=== PATIENT | female | born 1965 | race Caucasian/White ===

== ENCOUNTER → 2020-04-22 | Outpatient (CLI) | payer BC ==
--- NOTE | 2020-04-22 14:43 | XR ---
Right hip HISTORY: M 54.5, M 25.551, back pain radiating to right hip 2 views of the right hip Bone mineralization, joint spaces and alignment are maintained. Probable phleboliths present within t he pelvis. IMPRESSION: Normal right hip.
--- NOTE | 2020-04-22 14:50 | XR ---
Lumbosacral spine HISTORY: Low back pain, M 54.5, M 25.51 5 views of lumbosacral spine Lumbar vertebral bodies show preserved height, alignment, bone mineralization is mildly reduced. No e vident spondylolysis. Loss of disc height present L5-S1, L4-5, there is multilevel spondylosis. Suspe ct T12 is nonrib-bearing. Sclerosis present in the posterior elements of the lower lumbar spine. Ques tionable ectasia within the abdominal aorta, as described calcifications present IMPRESSION: Degenerative disc disease and facet arthropathy.
== END | disposition home or self-care (01) ==
LOC: RADXRMAIN 13:08
PROVIDERS: ATTEND Family Medicine
DX: M51.36 Other intervertebral disc degeneration, lumbar region (principal); M47.816 Spondylosis without myelopathy or radiculopathy, lumbar region; M25.551 Pain in right hip
CPT/HCPCS: 72110; 73502

== ENCOUNTER → 2020-04-29 | Outpatient (CLI) | payer BC ==
--- NOTE | 2020-04-30 07:48 | US ---
EXAMINATION TYPE: US abdomen complete DATE OF EXAM: 04/29/2020 COMPARISON: NONE CLINICAL HISTORY: R68.89 Abnormal clinical finding. Follow up to xray. EXAM MEASUREMENTS: Liver Length: 16.3 cm Gallbladder Wall: .2 cm CBD: .3 cm Spleen: 10.5 cm Right Kidney: 10.1 x 4.1 x 4.4 cm Left Kidney: 11 x 4.4 x 4.4 cm Pancreas: wnl Liver: wnl. Some early fatty infiltration may be present. Gallbladder: wnl Evidence for sonographic Hernandez's sign: No CBD: wnl Spleen: wnl Right Kidney: wnl Left Kidney: wnl Upper IVC: wnl Abd Aorta: wnl IMPRESSION: 1. Normal right upper quadrant ultrasound
== END | disposition home or self-care (01) ==
LOC: RADUSWWP 14:44
PROVIDERS: ATTEND Family Medicine
DX: R68.89 Other general symptoms and signs (principal); Z91.011 Allergy to milk products; Z91.012 Allergy to eggs
CPT/HCPCS: 76700

== ENCOUNTER → 2021-01-06 | Outpatient (CLI) | payer BC ==
--- NOTE | 2021-01-06 12:59 | XR ---
KUB HISTORY: Abdominal pain, hematuria, right flank pain Frontal KUB submitted on [address] scan 10/12/2015, ultrasound 04/29/2020 The lung bases are clear. There is overlying artifact. No evident bowel obstruction or pneumoperitone um. No pathologic calcification is evident. Scattered calcifications within the pelvis are felt likel y to represent phleboliths. IMPRESSION: Multiple pelvic calcifications, at least some of which are outside medical sales representative of phleboliths
== END ==
LOC: RADXRMAIN 12:38
PROVIDERS: ATTEND Family Medicine
DX: R31.9 Hematuria, unspecified (principal); R10.9 Unspecified abdominal pain
CPT/HCPCS: 74018

== ENCOUNTER → 2021-03-03 | Outpatient (CLI) | payer BC ==
--- NOTE | 2021-03-03 15:52 | XR ---
EXAMINATION TYPE: XR Hip Complete RT DATE OF EXAM: 03/03/2021 COMPARISON: NONE HISTORY: Pain TECHNIQUE: 2 views submitted FINDINGS: There is no evidence of erosive change or acute fracture. Vascular calcifications in the pelvis. Mild arthropathy of the SI joints. Mild prominence of lateral margin of the acetabulum. IMPRESSION: 1. Mild SI joint arthropathy. 2. Mild prominence of the lateral margin the acetabulum can be associated with femoral acetabular imp ingement. Correlate clinically..
--- NOTE | 2021-03-03 15:52 | XR ---
EXAMINATION TYPE: XR femur RT DATE OF EXAM: 03/03/2021 CLINICAL HISTORY: Pain TECHNIQUE: Two views of the right femur are obtained. COMPARISON: None FINDINGS: There is no acute fracture or dislocation seen in the right femur. The right hip appear w ithin normal limits. The overlying soft tissue appears unremarkable. Calcifications the pelvis likel y vascular. Narrowing of the knee joint incidentally noted. IMPRESSION: There is no acute fracture or dislocation in the right femur.
== END | disposition home or self-care (01) ==
LOC: RADXRMAIN 14:40
PROVIDERS: ATTEND Nurse Practitioner Women's Health
DX: M16.11 Unilateral primary osteoarthritis, right hip (principal); M79.651 Pain in right thigh
CPT/HCPCS: 73502

== ENCOUNTER → 2022-01-11 | Outpatient (CLI) | payer BC ==
--- NOTE | 2022-01-11 15:11 | XR ---
Cervical spine HISTORY: Pain 5 views of the cervical spine Cervical vertebral bodies show preserved height, alignment, and bone mineralization. Disc spaces and prevertebral soft tissues are normal. No significant foraminal encroachment on oblique views. Rudimen tary cervical ribs are noted incidentally. IMPRESSION: No abnormality evident to account for patient's symptoms. Incidental cervical ribs.
--- NOTE | 2022-01-11 15:12 | XR ---
Left shoulder HISTORY: M25.512 M54.2 3 views of the left shoulder Bone mineralization, joint spaces and alignment are maintained. Left lung apex as visualized is luz l. There is a distal acromial spur. IMPRESSION: Correlate for impingement. Shoulder MRI may be of benefit.
== END | disposition home or self-care (01) ==
LOC: RADXRMAIN 14:17
PROVIDERS: ATTEND Nurse Practitioner Family
DX: M25.512 Pain in left shoulder (principal); M54.2 Cervicalgia
CPT/HCPCS: 72050

== ENCOUNTER 2022-01-21 13:53 | Observation (INO) | payer BC ==
[2022-01-21 15:14] LABS: Basophils % (A) 1 %; Eosinophils % (A) 0 %; HCT 40.4 % (34.0-46.0); HGB 13.5 gm/dL (11.4-16.0); Lymphocytes # (A) 1.3 k/uL (1.0-4.8); Lymphocytes % (A) 17 %; MCH 29.2 pg (25.0-35.0); MCHC 33.4 g/dL (31.0-37.0); MCV 87.2 fL (80.0-100.0); Mean Platelet Volume 8.5; Monocytes # (A) 0.3 k/uL (0-1.0); Monocytes % (A) 4 %; Neutrophils % (A) 78 %; Platelet Count 261 k/uL (150-450); RBC 4.63 m/uL (3.80-5.40); RDW 12.6 % (11.5-15.5); WBC 7.7 k/uL (3.8-10.6)
--- NOTE | 2022-01-21 15:14 | XR ---
EXAMINATION TYPE: XR chest 2V DATE OF EXAM: 01/21/2022 COMPARISON: NONE HISTORY: Chest pain. TECHNIQUE: Frontal and lateral views of the chest are obtained. FINDINGS: Overlying EKG leads. There is no focal air space opacity, pleural effusion, or pneumothora x seen. The cardiac silhouette size is within normal limits. The osseous structures are intact. IMPRESSION: No acute process.
[2022-01-21 15:32] LABS: INR 0.9 (<1.2); Partial Thromboplastin Time 21.9 sec (22.0-30.0); Prothrombin Time 10.1 sec (9.0-12.0)
--- NOTE | 2022-01-21 15:41 | ED ---
General Adult HPI - General Chief complaint: Chest Pain Stated complaint: recheck Time Seen by Provider: 01/21/22 14:37 Source: patient, RN notes reviewed, old records reviewed Mode of arrival: ambulatory Limitations: no limitations - History of Present Illness Initial comments: 56 -year-old female presents for evaluation of chest pain which began yesterday. Patient states she was out for a walk. She developed a substernal chest pain which was relieved by rest. She has no prior history of CAD. She states she's had some intermittent palpitations and chest discomfort and is currently following with her primary care physician and has a stress echo planned for the of this month. She denies cough or fever. Denies dyspnea. Denies lower extremity pain or swelling. Denies vomiting. She states she has had some symptoms in her left arm but this is been ongoing for approximately one month and she believes associated with neck pain and is scheduled for MRI as an outpatient. - Related Data Home Medications Medication Instructions Recorded Confirmed Cyanocobalamin (Vitamin B-12) 1,000 mcg PO DAILY 01/21/22 01/21/22 [Vitamin B-12] Ibuprofen [Motrin Ib] 800 mg PO Q8H 01/21/22 01/21/22 Loratadine [Alavert] 10 mg PO DAILY PRN 01/21/22 01/21/22 Rosuvastatin Calcium [Crestor] 5 mg PO Q48H 01/21/22 01/21/22 methocarbamoL [Robaxin] 500 mg PO HS 01/21/22 01/21/22 predniSONE [Deltasone] 20 mg PO DAILY 01/21/22 01/21/22 Allergies Allergy/AdvReac Type Severity Reaction Status Date / Time banana Allergy Dyspnea/Wyatt Verified 01/21/22 16:48 h/Hives egg Allergy Dyspnea Verified 01/21/22 16:48 garlic Allergy Unknown Verified 01/21/22 16:48 milk Allergy Unknown Verified 01/21/22 16:48 corina Allergy Unknown Uncoded 01/21/22 16:48 Review of Systems ROS Statement: Those systems with pertinent positive or pertinent negative responses have been documented in the HPI. ROS Other: All systems not noted in ROS Statement are negative. Past Medical History Past Medical History: GERD/Reflux, Skin Disorder Additional Past Medical History / Comment(s): ECZEMA, HAVING STOMACH PAIN AFTER EATING. History of Any Multi-Drug Resistant Organisms: None Reported Past Surgical History: Section Additional Past Surgical History / Comment(s): laser surgery for cervial dysplasia, pilonidal cyst, COLONOSCOPY Past Anesthesia/Blood Transfusion Reactions: Motion Sickness Past Psychological History: No Psychological Hx Reported Smoking Status: Never smoker Past Alcohol Use History: None Reported Past Drug Use History: None Reported - Past Family History Father Additional Family Medical History / Comment(s): ACOUSTIC NEUROMA General Exam Limitations: no limitations General appearance: alert, in no apparent distress Head exam: Present: atraumatic, normocephalic Eye exam: Present: normal appearance, PERRL ENT exam: Present: normal exam Neck exam: Present: normal inspection. Absent: tenderness, meningismus Respiratory exam: Present: normal lung sounds bilaterally. Absent: respiratory distress, wheezes Cardiovascular Exam: Present: regular rate, normal rhythm GI/Abdominal exam: Present: soft. Absent: distended, tenderness, guarding Extremities exam: Present: normal inspection, normal capillary refill. Absent: pedal edema Back exam: Present: normal inspection Neurological exam: Present: alert, oriented X3, CN II-XII intact. Absent: motor sensory deficit Psychiatric exam: Present: normal affect, normal mood Skin exam: Present: warm, dry, intact. Absent: cyanosis, diaphoretic Course Vital Signs 01/21/22 14:01 Temperature 97.2 F L Pulse Rate 82 Respiratory 18 Rate Blood Pressure 138/84 O2 Sat by Pulse 98 Oximetry EKG Findings - EKG Comments: EKG Findings:: EKG: Sinus rhythm with minimal ST segment depression in the lateral precordial leads and leads 3 and aVF. There is no ST segment elevation rate of 71, TN interval 142, QRS duration 91, QTC 401 Medical Decision Making - Medical Decision Making 56-year-old female presenting for evaluation of chest pain relieved by rest. No previous history of CAD. EKG shows sinus rhythm without ST segment elevation. There is subtle ST segment depression. Chest x-ray is clear. She has a normal CBC, normal CMP. She does have a stress test scheduled. Given the worsening features of her symptoms she will be admitted for serial cardiac enzymes, telemetry, cardiology consultation. Case discussed with Dr. Miles who will admit. - Lab Data Result diagrams: 01/21/22 14:00 01/21/22 16:19 Lab Results 01/21/22 01/21/22 01/21/22 Range/Units 14:00 14:00 14:00 WBC 7.7 (3.8-10.6) k/uL RBC 4.63 (3.80-5.40) m/uL Hgb 13.5 (11.4-16.0) gm/dL Hct 40.4 (34.0-46.0) % MCV 87.2 (80.0-100.0) fL MCH 29.2 (25.0-35.0) pg MCHC 33.4 (31.0-37.0) g/dL RDW 12.6 (11.5-15.5) % Plt Count 261 (150-450) k/uL MPV 8.5 Neutrophils % 78 % Lymphocytes % 17 % Monocytes % 4 % Eosinophils % 0 % Basophils % 1 % Neutrophils # 6.0 (1.3-7.7) k/uL Lymphocytes # 1.3 (1.0-4.8) k/uL Monocytes # 0.3 (0-1.0) k/uL Eosinophils # 0.0 (0-0.7) k/uL Basophils # 0.0 (0-0.2) k/uL PT 10.1 (9.0-12.0) sec INR 0.9 (<1.2) APTT 21.9 L (22.0-30.0) sec Sodium (137-145) mmol/L Potassium (3.5-5.1) mmol/L Chloride (98-107) mmol/L Carbon Dioxide (22-30) mmol/L Anion Gap mmol/L BUN (7-17) mg/dL Creatinine (0.52-1.04) mg/dL Est GFR (CKD-EPI)AfAm (>60 ml/min/1.73 sqM) Est GFR (CKD-EPI)NonAf (>60 ml/min/1.73 sqM) Glucose (74-99) mg/dL Calcium (8.4-10.2) mg/dL Magnesium (1.6-2.3) mg/dL Total Bilirubin (0.2-1.3) mg/dL AST (14-36) U/L ALT (4-34) U/L Alkaline Phosphatase (38-126) U/L Troponin I (0.000-0.034) ng/mL NT-Pro-B Natriuret Pep 111 pg/mL Total Protein (6.3-8.2) g/dL Albumin (3.5-5.0) g/dL Lipase (23-300) U/L 01/21/22 01/21/22 Range/Units 16:19 16:19 WBC (3.8-10.6) k/uL RBC (3.80-5.40) m/uL Hgb (11.4-16.0) gm/dL Hct (34.0-46.0) % MCV (80.0-100.0) fL MCH (25.0-35.0) pg MCHC (31.0-37.0) g/dL RDW (11.5-15.5) % Plt Count (150-450) k/uL MPV Neutrophils % % Lymphocytes % % Monocytes % % Eosinophils % % Basophils % % Neutrophils # (1.3-7.7) k/uL Lymphocytes # (1.0-4.8) k/uL Monocytes # (0-1.0) k/uL Eosinophils # (0-0.7) k/uL Basophils # (0-0.2) k/uL PT (9.0-12.0) sec INR (<1.2) APTT (22.0-30.0) sec Sodium 141 (137-145) mmol/L Potassium 4.2 (3.5-5.1) mmol/L Chloride 107 (98-107) mmol/L Carbon Dioxide 27 (22-30) mmol/L Anion Gap 7 mmol/L BUN 12 (7-17) mg/dL Creatinine 0.57 (0.52-1.04) mg/dL Est GFR (CKD-EPI)AfAm >90 (>60 ml/min/1.73 sqM) Est GFR (CKD-EPI)NonAf >90 (>60 ml/min/1.73 sqM) Glucose 95 (74-99) mg/dL Calcium 9.3 (8.4-10.2) mg/dL Magnesium 2.1 (1.6-2.3) mg/dL Total Bilirubin 0.8 (0.2-1.3) mg/dL AST 20 (14-36) U/L ALT 24 (4-34) U/L Alkaline Phosphatase 79 (38-126) U/L Troponin I <0.012 (0.000-0.034) ng/mL NT-Pro-B Natriuret Pep pg/mL Total Protein 7.0 (6.3-8.2) g/dL Albumin 4.4 (3.5-5.0) g/dL Lipase 48 (23-300) U/L Disposition Clinical Impression: Chest pain Disposition: HOME SELF-CARE Condition: Stable Is patient prescribed a controlled substance at d/c from ED?: No Referrals: Nonstaff,Physician [REFERRING] - 1-2 days Decision to Admit Reason: Admit from EC Decision Date: 01/21/22 Decision Time: 17:56
[2022-01-21 16:37] LABS: ALT 24 U/L (4-34); AST 20 U/L (14-36); African American GFR (CKD) >90 (>60 ml/min/1.73 sqM); Albumin 4.4 g/dL (3.5-5.0); Alkaline Phosphatase 79 U/L (38-126); Anion Gap 7 mmol/L; Blood Urea Nitrogen 12 mg/dL (7-17); Calcium 9.3 mg/dL (8.4-10.2); Carbon Dioxide 27 mmol/L (22-30); Chloride 107 mmol/L (98-107); Glucose 95 mg/dL (74-99); Lipase 48 U/L (23-300); Magnesium 2.1 mg/dL (1.6-2.3); Non-African American GFR(CKD) >90 (>60 ml/min/1.73 sqM); Potassium 4.2 mmol/L (3.5-5.1); Sodium 141 mmol/L (137-145); Total Bilirubin 0.8 mg/dL (0.2-1.3)
[2022-01-21] MEDS ORDERED: ONDANSETRON 4 MG/2 ML VIAL IVP PRN (17:51)
[2022-01-21] MEDS ORDERED: NALOXONE 0.4 MG/ML 1 ML VIAL IV PRN (17:51)
[2022-01-21] MEDS ORDERED: ACETAMINOPHEN TAB 325 MG TAB PO PRN (17:51)
[2022-01-22 08:07] VITALS: TEMP 97.7
--- NOTE | 2022-01-22 11:29 | P.CRDCN ---
History of Present Illness History of present illness: HISTORY OF PRESENTING ILLNESS Patient is a pleasant 56-year-old female with history of end-stage renal disease approximally 6 years who presents secondary to multiple complaints including fa tigue, chest pain, shortness breath, abdominal pain, chills since her COVID-19 vaccination this Monday. He states she felt fairly fatigued and slept for approximately day and a half and then was still having some symptoms of chest pain which went down the center of her chest and radiated down her sides, shortness breath and feeling chilled. Therefore she came to emergency department and was found to have normal troponins 3, normal proBNP, EKG normal sinus rhythm with minimal ST depressions. She states since yesterday she is feeling much better and denies any further chest pain. Of CAD, congestive heart failure, heart catheterization. REVIEW OF SYSTEMS At the time of my exam: CONSTITUTIONAL: Denies fever or chills. CARDIOVASCULAR: +Chest pain, +shortness of breath, no orthopnea, PND or palpitations. RESPIRATORY: Denies cough. GASTROINTESTINAL: +abdominal pain, no diarrhea, constipation, nausea or vomiting. MUSCULOSKELETAL: Denies myalgias. NEUROLOGIC: Denies numbness, tingling or weakness. ENDOCRINE: Denies fatigue, weight change, polydipsia or polyurina. GENITOURINARY: Denies burning, hematuria or urgency with micturation. HEMATOLOGIC: Denies history of anemia or bleeding. PHYSICAL EXAMINATION Vital signs reviewed. CONSTITUTIONAL: No apparent distress. HEENT: Head is normocephalic. Pupils are equal, round. Sclerae anicteric. Mucous membranes of the mouth are moist. No JVD. No carotid bruit. CHEST EXAMINATION: Lungs are clear to auscultation. No chest wall tenderness is noted on palpation or with deep breathing. HEART EXAMINATION: Regular rate and rhythm. S1, S2 heard. No murmurs, gallops or rub. ABDOMEN: Soft, nontender. Positive bowel sounds. EXTREMITIES: 2+ peripheral pulses, no lower extremity edema and no calf tenderness. NEUROLOGIC EXAMINATION: Patient is awake, alert and oriented x3. ASSESSMENT 1. Atypical chest pain as well as multiple other complaints most likely related to recent COVID-19 vaccination on Monday 2. COVID-19 vaccination Monday 3. End-stage renal disease PLAN Patient was having a multitude of symptoms immediately after her vaccine however no evidence of any myocarditis. Symptoms are atypical and have improved. Tropo nins normal 3 and no further workup required as an inpatient currently. Patient may be discharged home with outpatient follow-up in 1 week. Past Medical History Past Medical History: GERD/Reflux, Hyperlipidemia, Skin Disorder Additional Past Medical History / Comment(s): ECZEMA History of Any Multi-Drug Resistant Organisms: None Reported Past Surgical History: Section Additional Past Surgical History / Comment(s): laser surgery for cervial dys plasia, pilonidal cyst, COLONOSCOPY Past Anesthesia/Blood Transfusion Reactions: Motion Sickness Additional Past Anesthesia/Blood Transfusion Reaction / Comment(s): Pt states she has to use an older anesthesia d/t her milk allergy. Past Psychological History: No Psychological Hx Reported Smoking Status: Never smoker Past Alcohol Use History: None Reported Past Drug Use History: None Reported - Past Family History Mother Family Medical History: AFIB, Diabetes Mellitus, Hyperlipidemia Father Additional Family Medical History / Comment(s): ACOUSTIC NEUROMA Medications and Allergies Home Medications Medication Instructions Recorded Confirmed Type Cyanocobalamin (Vitamin B-12) 1,000 mcg PO DAILY 01/21/22 01/21/22 History [Vitamin B-12] Ibuprofen [Motrin Ib] 800 mg PO Q8H 01/21/22 01/21/22 History Loratadine [Alavert] 10 mg PO DAILY PRN 01/21/22 01/21/22 History Rosuvastatin Calcium [Crestor] 5 mg PO Q48H 01/21/22 01/21/22 History methocarbamoL [Robaxin] 500 mg PO HS 01/21/22 01/21/22 History predniSONE [Deltasone] 20 mg PO DAILY 01/21/22 01/21/22 History Allergies Allergy/AdvReac Type Severity Reaction Status Date / Time banana Allergy Dyspnea/Wyatt Verified 01/21/22 16:48 h/Hives egg Allergy Dyspnea Verified 01/21/22 16:48 garlic Allergy Unknown Verified 01/21/22 16:48 milk Allergy Unknown Verified 01/21/22 16:48 corina Allergy Unknown Uncoded 01/21/22 16:48 Physical Exam Vitals: Vital Signs Temp Pulse Pulse Resp BP BP Pulse Ox 01/22/22 07:30 97.7 F 59 L 16 115/69 98 01/22/22 02:33 97.8 F 75 18 108/65 98 03/19/22 01:41 60 01/21/22 20:00 18 01/21/22 19:51 98.2 F 60 18 127/73 97 01/21/22 18:14 68 18 115/79 98 01/21/22 14:01 97.2 F L 82 18 138/84 98 Intake and Output 01/21/22 01/22/22 01/22/22 22:59 06:59 14:59 Intake Total 0 Balance 0 Intake: Oral 0 Other: Voiding Method Toilet # Voids 1 2 Weight 65.317 kg Results 01/21/22 14:00 01/21/22 16:19 Cardiac Enzymes 01/21/22 01/21/22 01/21/22 Range/Units 16:19 16:19 19:44 AST 20 (14-36) U/L Troponin I <0.012 <0.012 (0.000-0.034) ng/mL 01/22/22 Range/Units 00:37 AST (14-36) U/L Troponin I <0.012 (0.000-0.034) ng/mL Coagulation 01/21/22 Range/Units 14:00 PT 10.1 (9.0-12.0) sec APTT 21.9 L (22.0-30.0) sec CBC 01/21/22 Range/Units 14:00 WBC 7.7 (3.8-10.6) k/uL RBC 4.63 (3.80-5.40) m/uL Hgb 13.5 (11.4-16.0) gm/dL Hct 40.4 (34.0-46.0) % Plt Count 261 (150-450) k/uL Comprehensive Metabolic Panel 01/21/22 Range/Units 16:19 Sodium 141 (137-145) mmol/L Potassium 4.2 (3.5-5.1) mmol/L Chloride 107 (98-107) mmol/L Carbon Dioxide 27 (22-30) mmol/L BUN 12 (7-17) mg/dL Creatinine 0.57 (0.52-1.04) mg/dL Glucose 95 (74-99) mg/dL Calcium 9.3 (8.4-10.2) mg/dL AST 20 (14-36) U/L ALT 24 (4-34) U/L Alkaline Phosphatase 79 (38-126) U/L Total Protein 7.0 (6.3-8.2) g/dL Albumin 4.4 (3.5-5.0) g/dL Current Medications Generic Name Dose Route Start Last Admin Trade Name Freq PRN Reason Stop Dose Admin Acetaminophen 650 mg 01/21/22 17:51 Acetaminophen Tab 325 Mg Tab PO Q6HR PRN Mild Pain or Fever > 100.5 Naloxone HCl 0.2 mg 01/21/22 17:51 Naloxone 0.4 Mg/Ml 1 Ml Vial IV Q2M PRN Opioid Reversal Ondansetron HCl 4 mg 01/21/22 17:51 Ondansetron 4 Mg/2 Ml Vial IVP Q8HR PRN Nausea And Vomiting Intake and Output 01/21/22 01/22/22 01/22/22 22:59 06:59 14:59 Intake Total 0 Balance 0 Intake: Oral 0 Other: Voiding Method Toilet # Voids 1 2 Weight 65.317 kg 01/21/22 14:00 01/21/22 16:19
--- NOTE | 2022-01-22 14:16 | P.HPIM ---
History of Present Illness H&P Date: 01/22/22 Chief Complaint: Chest pain dyspnea Maureen is a 56-year-old female well-known to the practice, admitted with chest pain shortness of breath, this patient lives nearby my home and walks daily 2-3 miles with her . Is employed as a nurse at the [employer], during resting episode developed profound of burning midsternal which seemed to take her breath away patient's initial troponin was negative has a past history of reflux esophagitis maternal history of atrial fibrillation in her mother, Patient was kept for a 24-hour cardiac hold, all 3 troponins are negative, patient denies chest pain, is up walking around the room and in asking for food and water, this patient has not been seen by cardiology yet. However she already has a stress echo scheduled for next week with the tool clerk. Decision was made with the patient to discharge the patient home discussed raising the head of the bed discuss wearing loosefitting clothing discussed all of the recommendations associated with gastroesophageal reflux disease patient was instructed to return to the emergency room if she should develop this chest pain with shortness of breath at any time Review of Systems Constitutional: Reports as per HPI Cardiovascular: Reports chest pain (Suspect reflux esophagitis) Respiratory: Reports as per HPI Gastrointestinal: Reports dyspepsia Genitourinary: Reports as per HPI Menstruation: Reports as per HPI Musculoskeletal: Reports as per HPI Integumentary: Reports as per HPI Neurological: Reports as per HPI Psychiatric: Reports as per HPI Past Medical History Past Medical History: GERD/Reflux, Hyperlipidemia, Skin Disorder Additional Past Medical History / Comment(s): ECZEMA History of Any Multi-Drug Resistant Organisms: None Reported Past Surgical History: Section Additional Past Surgical History / Comment(s): laser surgery for cervial dysplasia, pilonidal cyst, COLONOSCOPY Past Anesthesia/Blood Transfusion Reactions: Motion Sickness Additional Past Anesthesia/Blood Transfusion Reaction / Comment(s): Pt states she has to use an older anesthesia d/t her milk allergy. Past Psychological History: No Psychological Hx Reported Smoking Status: Never smoker Past Alcohol Use History: None Reported Past Drug Use History: None Reported - Past Family History Mother Family Medical History: AFIB, Diabetes Mellitus, Hyperlipidemia Father Additional Family Medical History / Comment(s): ACOUSTIC NEUROMA Medications and Allergies Home Medications Medication Instructions Recorded Confirmed Type Cyanocobalamin (Vitamin B-12) 1,000 mcg PO DAILY 01/21/22 01/21/22 History [Vitamin B-12] Ibuprofen [Motrin Ib] 800 mg PO Q8H 01/21/22 01/21/22 History Loratadine [Alavert] 10 mg PO DAILY PRN 01/21/22 01/21/22 History Rosuvastatin Calcium [Crestor] 5 mg PO Q48H 01/21/22 01/21/22 History methocarbamoL [Robaxin] 500 mg PO HS 01/21/22 01/21/22 History predniSONE [Deltasone] 20 mg PO DAILY 01/21/22 01/21/22 History Allergies Allergy/AdvReac Type Severity Reaction Status Date / Time banana Allergy Dyspnea/Wyatt Verified 01/21/22 16:48 h/Hives egg Allergy Dyspnea Verified 01/21/22 16:48 garlic Allergy Unknown Verified 01/21/22 16:48 milk Allergy Unknown Verified 01/21/22 16:48 corina Allergy Unknown Uncoded 01/21/22 16:48 Physical Exam Osteopathic Statement: *. No significant issues noted on an osteopathic structural exam other than those noted in the History and Physical/Consult. Vitals: Vital Signs Temp Pulse Pulse Resp BP BP Pulse Ox 01/22/22 07:30 97.7 F 59 L 16 115/69 98 01/22/22 02:33 97.8 F 75 18 108/65 98 01/22/22 01:41 60 01/21/22 20:00 18 01/21/22 19:51 98.2 F 60 18 127/73 97 01/21/22 18:14 68 18 115/79 98 Intake and Output 01/21/22 01/22/22 01/22/22 22:59 06:59 14:59 Intake Total 0 Balance 0 Intake: Oral 0 Other: Voiding Method Toilet # Voids 1 2 Weight 65.317 kg General: [Patient awake, alert and oriented times 3. Patient in no acute distr ess.] HEENT: [PERRL. EOMI. No pharyngeal erythema or exudate.] Neck: [No adenopathy.] Cardiac: [Heart regular in rate and rhythm. No S3. No S4. No clicks, rubs. No murmur.] Lungs: [Clear to auscultation bilaterally.] Abdomen: [No mass. No organomegaly. Bowel sounds presnt and normoactive in all 4 quadrants. Mild reproducible epigastric tenderness on palpation Extremes: [No edema no cyanosis no claudication normal pulses] : Normal female genitalia Musculoskeletal: [No joint erythema, edema or tenderness.] Skin: [No rash.] Neurologic: [No lateralizing deficits. CN II - XII grossly intact.] Lymphatic: [No adenopathy.] Results CBC & Chem 7: 01/21/22 14:00 01/21/22 16:19 Labs: Abnormal Lab Results - Last 24 Hours (Table) 01/21/22 Range/Units 14:00 APTT 21.9 L (22.0-30.0) sec Thrombosis Risk Factor Assmnt - Choose All That Apply Any of the Below Risk Factors Present?: Yes Each Factor Represents 1 point: Age 41-60 years, Obesity (BMI >25) Other Risk Factors: No Other congenital or acquired thrombophilia - If yes, enter type in comment: No Thrombosis Risk Factor Assessment Total Risk Factor Score: 2 Thrombosis Risk Factor Assessment Level: Low Risk Assessment and Plan (1) Gastroesophageal reflux disease with esophagitis Current Visit: Yes Status: Acute Code(s): K21.00 - GASTRO-ESOPHAGEAL REFLUX DIS WITH ESOPHAGITIS, WITHOUT BLEED SNOMED Code(s): 402854635 Plan: Patient presented with chest pain EKG shows no evidence of acute changes Troponins no elevation in 3 serial troponins Known history of esophageal reflux has seen Dr. Giovany MASON in the past Has a stress echo scheduled for next week will keep appointment We'll discharged home in stable condition Did offer patient omeprazole for esophageal reflux she declined at this time Time with Patient: Greater than 30
--- NOTE | 2022-01-22 14:18 | P.DS ---
Providers Date of admission: 01/21/22 17:51 Expected date of discharge: 01/22/22 Attending physician: Ramon Miles Consults: 01/21/22 17:52 Consult Physician Routine Consulting Provider: Benja Alcocer Consult Reason/Comments: CP rule out Do you want consulting provider notified?: Yes Primary care physician: Ramon Miles - Discharge Diagnosis(es) (1) Gastroesophageal reflux disease with esophagitis Current Visit: Yes Status: Acute Hospital Course: Admitted for observation serial EKG serial troponins negative for acute changes or for elevated cardiac enzyme Patient Condition at Discharge: Good Plan - Discharge Summary New Discharge Prescriptions: No Action Rosuvastatin Calcium [Crestor] 5 mg PO Q48H Loratadine [Alavert] 10 mg PO DAILY PRN PRN Reason: Allergy Symptoms predniSONE [Deltasone] 20 mg PO DAILY Ibuprofen [Motrin Ib] 800 mg PO Q8H Cyanocobalamin (Vitamin B-12) [Vitamin B-12] 1,000 mcg PO DAILY methocarbamoL [Robaxin] 500 mg PO HS Discharge Medication List Cyanocobalamin (Vitamin B-12) [Vitamin B-12] 1,000 mcg PO DAILY 01/21/22 [History] Ibuprofen [Motrin Ib] 800 mg PO Q8H 01/21/22 [History] Loratadine [Alavert] 10 mg PO DAILY PRN 01/21/22 [History] Rosuvastatin Calcium [Crestor] 5 mg PO Q48H 01/21/22 [History] methocarbamoL [Robaxin] 500 mg PO HS 01/21/22 [History] predniSONE [Deltasone] 20 mg PO DAILY 01/21/22 [History] Follow up Appointment(s)/Referral(s): Nonstaff,Physician [REFERRING] - 1-2 days
[2022-01-22 14:29] VITALS: BP 130/80; PULSE 69; RESP 17
== END 2022-01-22 14:42 | disposition home or self-care (01) ==
LOC: EC 13:53 → 6NMEDSUR 17:51
PROVIDERS: ADMIT Family Medicine; ATTEND Family Medicine
DX: K21.00 Gastro-esophageal reflux disease with esophagitis, without bleeding (principal); E78.5 Hyperlipidemia, unspecified; L30.9 Dermatitis, unspecified; R00.2 Palpitations; E66.9 Obesity, unspecified; Z68.27 Body mass index [BMI] 27.0-27.9, adult; Z79.899 Other long term (current) drug therapy; Z79.1 Long term (current) use of non-steroidal anti-inflammatories (NSAID); Z91.012 Allergy to eggs; Z91.018 Allergy to other foods; Z91.048 Other nonmedicinal substance allergy status; Z91.011 Allergy to milk products; Z82.49 Family history of ischemic heart disease and other diseases of the circulatory system; Z83.3 Family history of diabetes mellitus; Z84.89 Family history of other specified conditions; Z83.438 Family history of other disorder of lipoprotein metabolism and other lipidemia
CPT/HCPCS: 99285; 36415; 93005; 83880; 80053; 83690; 83735; 84484 ×2; 85025; 85610; 85730; 71046; G0378 ×2

== ENCOUNTER → 2022-01-21 | Outpatient (CLI) | payer BC | END | disposition home or self-care (01) | LOC: LABWHC1 13:34 | PROVIDERS: ATTEND Nurse Practitioner Family | DX: Z53.9 Procedure and treatment not carried out, unspecified reason (principal) ==

== ENCOUNTER → 2022-01-31 | Outpatient (CLI) | payer BC ==
--- NOTE | 2022-01-31 10:57 | ECHOS ---
STRESS ECHOCARDIOGRAM DATE OF STUDY: 01/31/2022 INDICATIONS: Chest pain. BASELINE HEART RATE: 75 BASELINE BLOOD PRESSURE: 118/56 MAXIMUM HEART RATE: 75 MAXIMUM BLOOD PRESSURE: 118/56 85% MPHR: 154 100% MPHR: 138 METS: 162 MAXIMUM STAGE REACHED: 3 TOTAL EXERCISE TIME: 9 min. CLINICAL INFORMATION: STRESS DATA: Pre-testing physical examination showed a heart rate of 75, pressure 118/56 mmHg. Baseline EKG showed sinus mechanism. The patient exercised on the treadmill according to Edinson protocol for a total of 9 minutes and achieved 9.3 METS. Max heart rate was 176, which is about 96% of maximum predicted heart rate. Maximum blood pressure was 181/66 mmHg. Clinically the patient did not have any symptoms. The EKG showed about 1 to 1.5 mm horizontal and downsloping ST-segment changes concerning for ischemia. Echocardiogram images from parasternal long-axis view, parasternal short-axis view, apical 4-chamber and apical 2-chamber views were obtained as the baseline images at the peak of the heart rate as well as on recovery. The echocardiogram images showed good augmentation in the left ventricular systolic function without any evidence of wall motion abnormalities concerning for ischemia. CONCLUSION: 1. Excellent exercise tolerance. 2. EKG changes in response to exercise. 3. Normal echocardiogram in response to exercise without any evidence of wall motion abnormalities concerning for ischemia. MMODL / IJN: [id number] /
--- NOTE | 2022-02-01 13:24 | MR ---
EXAMINATION TYPE: MR shoulder LT wo con DATE OF EXAM: 01/31/2022 COMPARISON: Radiograph 01/11/2022 HISTORY: 57-year-old female M25.512, Left shoulder pain, loss of ROM. TECHNIQUE: Multiplanar, multisequence imaging of the left shoulder is performed without contrast. FINDINGS: The long head biceps tendon appears intact and appropriately situated along the bicipital groove. Mil d tenosynovial fluid is present. Some heterogeneous signal of the subscapularis tendon. The tendon remains intact. Moderate degenerative change AC joint with joint space narrowing, mild subchondral marrow edema, and marginal spurring. No significant mass effect onto the underlying myotendinous junction of the supras pinatus. There is trace fluid within the subacromial/subdeltoid bursa noted. Some heterogeneous signal of the spontaneous tendon. There is a tiny intrasubstance tear at the footp rint of the anterior supraspinatus tendon measuring 3 mm long and 5 mm AP. No high-grade partial or f ull-thickness tear is identified of either supraspinatus or infraspinatus tendons. No atrophy of the rotator cuff musculature. The glenohumeral joint is intact. Physiologic joint fluid. No discrete labral tear given on radiograp hic technique and no paralabral cyst. No abnormal thickening of the axillary recess or rotator cuff interval. No Hill-Sachs deformity or os acromiale. No suspicious bone marrow replacement. IMPRESSION: 1. Moderate AC joint OA. Mild subacromial/subdeltoid bursal fluid could be reactive to mild subacromi al impingement. 2. Mild fluid along the bicipital groove could be physiologic or could represent a mild long head bic eps tenosynovitis. 3. Mild diffuse rotator cuff tendinosis. There is a small 5 x 3 mm intrasubstance tear at the footpri nt of the anterior supraspinatus tendon. No high-grade partial or full-thickness rotator cuff tear.
== END | disposition home or self-care (01) ==
LOC: RADNMMAIN 09:06
PROVIDERS: ATTEND Family Medicine
DX: M19.012 Primary osteoarthritis, left shoulder (principal); R00.2 Palpitations; R07.9 Chest pain, unspecified; M77.8 Other enthesopathies, not elsewhere classified; M75.112 Incomplete rotator cuff tear or rupture of left shoulder, not specified as traumatic
CPT/HCPCS: 93351

== ENCOUNTER → 2022-01-31 | Outpatient (CLI) | payer BC | END | disposition home or self-care (01) | LOC: RADMRIMAIN 09:04 | PROVIDERS: ATTEND Nurse Practitioner Family | DX: Z53.9 Procedure and treatment not carried out, unspecified reason (principal) ==

== ENCOUNTER → 2022-11-03 | Outpatient (CLI) | payer BC ==
--- NOTE | 2022-11-03 10:53 | P.SLEEP ---
History of Present Illness DATE: 11/02/2022 CONSULTATION/NEW PATIENT EVALUATION HISTORY OF PRESENT ILLNESS/SLEEP-WAKE EVALUATION: 57-year-old lady had been ev aluated in the sleep center for possible obstructive sleep apnea hypopnea syndrome. SLEEP SCHEDULE: Usually sleep schedule from 11-12 midnight until 6:30-9 AM. FALLING ASLEEP: No problems with falling asleep, although there is a TV in bedroom. DURING SLEEP: Patient has loud snoring and witnessed episodes of stop breathing during the sleep according to her . She wakes up from sleep up to 4 times with up to 3 episodes of nocturia. Positive history of grinding teeth. Patient is using oral appliances to prevent grinding. No history of hypnogogical hallucinations, sleep paralysis, or cataplexy. DURING THE DAY/WAKE STATE: In the morning patient wake up tired, has difficulties to pay attention, positive history of irritability. [place] sleepiness scale is increased to 10. Patient may take 1 nap in the middle of afternoon. PAST MEDICAL HISTORY: Hyperlipidemia, GERD, ALLERGY. PAST SURGICAL HISTORY: Pilonidal needle cyst removed. MEDICATIONS: Rosuvastatin 5 mg once a day, loratidine 10 mg as needed, vitamins D and B12. SOCIAL HISTORY: Negative for smoking, alcohol consumption occasional. FAMILY HISTORY: Hypertension, atrial fibrillation, diabetes, acid reflux. REVIEW OF SYSTEMS: Snoring, multiple awakenings from sleep, sleepiness during the day. No fevers. No double vision. No recent chest pain. No shortness of breath. No abdominal pain. No bleeding episodes. No blood in urine. No seizure episodes. PHYSICAL EXAMINATION: GENERAL: A pleasant patient without any distress. VITAL SIGNS: BP 102/70, HR 76, RR 16, weight 148 pounds, height 5 foot 2-1/4 inches, body mass index 27. HEENT: PERRLA, EOMI. Evaluation of oropharynx showed tongue protrudes midline, low position of soft palate Mallampati 3. NECK: Supple. No JVD. Thyroid is not palpable. 14 inches in circumference. LUNGS: Clear to percussion and to auscultation. Good air exchange. No wheezing or rhonchi. HEART: S1, S2 regular. No murmurs, gallops or rubs. ABDOMEN: Soft and nontender. Bowel sounds are present. No organomegaly appreciated. EXTREMITIES: No clubbing or cyanosis. INSPECTOR GOVERNMENT PROPERTY: Awake, alert, and oriented x3. Cranial nerves 2 to 7 intact. There is no fasciculation or atrophy noted. No focal deficits observed. ASSESSMENT: 1. Loud snoring, witnessed episodes of stop breathing during the sleep, low position of soft palate Mallampati 3, excessive daytime sleepiness [place] Sleepiness Scale is 10. Obstructive sleep apnea hypopnea syndrome. 2. Hyperlipidemia. 3. GERD. 4. ALLERGY. PLAN: 1. Home sleep apnea test to confirm obstructive sleep apnea hypopnea syndrome. 2. Following plan after reading sleep test. 3. Preferable position during sleep on the side. 4. No driving if patient feels any sleepiness. Patient is aware of civil and criminal liability for unsafe driving. 5. Sleep hygiene with regular sleep time for at least 7.5-8 hours. 6. Watching weight. Thank you very much for referring this patient for consultation. Sincerely, Nelson Huerta MD, PhD, FAASM. Diplomat of [place] [employer], Sleep Medicine Board by [place] [employer] [place] [employer] Risk Reduction Counselor of [facility] [place] Past Medical History Past Medical History: GERD/Reflux, Hyperlipidemia, Skin Disorder Additional Past Medical History / Comment(s): ECZEMA History of Any Multi-Drug Resistant Organisms: None Reported Past Surgical History: Section Additional Past Surgical History / Comment(s): laser surgery for cervial dysplasia, pilonidal cyst, COLONOSCOPY Past Anesthesia/Blood Transfusion Reactions: Motion Sickness Additional Past Anesthesia/Blood Transfusion Reaction / Comment(s): Pt states she has to use an older anesthesia d/t her milk allergy. " Smoking Status: Never smoker - Past Family History Mother Family Medical History: AFIB, Diabetes Mellitus, Hyperlipidemia Father Additional Family Medical History / Comment(s): ACOUSTIC NEUROMA Medications and Allergies Home Medications Medication Instructions Recorded Confirmed Type Cyanocobalamin (Vitamin B-12) 1,000 mcg PO DAILY 01/21/22 06/20/22 History [Vitamin B-12] Ibuprofen [Motrin Ib] 400 mg PO Q8H PRN 01/21/22 06/20/22 History Loratadine [Alavert] 10 mg PO DAILY PRN 01/21/22 06/20/22 History Rosuvastatin Calcium [Crestor] 5 mg PO Q48H 01/21/22 06/20/22 History Allergies Allergy/AdvReac Type Severity Reaction Status Date / Time banana Allergy Dyspnea/Wyatt Verified 06/20/22 15:41 h/Hives egg Allergy Dyspnea Verified 06/20/22 15:41 garlic Allergy Unknown Verified 06/20/22 15:41 milk Allergy Unknown Verified 06/20/22 15:41 corina Allergy Unknown Uncoded 06/20/22 15:41 Sleep Note - Sleep Note Sleep Note: Temperature: Pulse Rate: Respiratory Rate: Blood Pressure: SpO2: Height: Weight: BMI: Neck Circumference:
== END ==
LOC: SLEEP 10:11
PROVIDERS: ATTEND Internal Medicine
DX: G47.33 Obstructive sleep apnea (adult) (pediatric) (principal); E78.5 Hyperlipidemia, unspecified; K21.9 Gastro-esophageal reflux disease without esophagitis; Z91.018 Allergy to other foods; Z91.012 Allergy to eggs; Z91.011 Allergy to milk products; Z91.013 Allergy to seafood
CPT/HCPCS: 99211

== ENCOUNTER → 2023-02-15 | Outpatient (CLI) | payer BC ==
--- NOTE | 2023-02-15 15:36 | P.PN ---
Subjective DATE: 02/15/2023 FOLLOW UP VISIT. Patient with obstructive sleep apnea hypopnea syndrome return to sleep center for follow-up visit. Recently patient had sleep study which documented obstructive sleep apnea hypopnea syndrome. Patient was initiated on PAP therapy and today is first visit after treatment was started. Patient was able to use PAP equipment every night for the whole night. The patient does not have significant problems with the mask, PAP pressure and humidification. [place] sleepiness scale is 4, which is normal. I checked information from PAP unit. PAP unit pressure 5-8, average 7.8 cm H2O. Usage is 100 % for more then 4 hours, average 7.25 hours per night. Leak is 2.6 l/m, which is in acceptable range. Apnea Hypopnea Index is 4.0, which is normal. I explained to the patient how to adjust temperature and humidifier and temperature in the tube. MEDICATIONS:1. Rosuvastatin 5 mg once a day 2. Loratidine 10 mg as needed 3. Vitamin D 4. Vitamin B12 During physical exam: GENERAL: A pleasant patient without any distress. VITAL SIGNS: BP 113/66, HR 74, RR 12 , weight 138.2, temperature 98.3, oxygen saturation at room air 99% . HEENT: PERRLA, EOMI.low position of soft palate, Mallapati 3 . NECK: Supple. No JVD. LUNGS: Clear to percussion and to auscultation. Good air exchange. No wheezing or rhonchi. HEART: S1, S2 regular. ABDOMEN: Soft and nontender.[] EXTREMITIES: No clubbing or cyanosis. PETROLEUM INSPECTOR: Awake, alert, and oriented x3. No focal deficit. Impressions: 1. Obstructive sleep apnea-hypopnea syndrome. Patient demonstrated great compliance with treatment, benefiting from treatment. 2. History of GERD. 3. Hyperlipidemia. 4. ALLERGY. Plan: 1. Continue using PAP equipment every night for the whole night. 2. To change air filter at least 1-2 times per month. 3. PAP unit should stay lower then position of the head. 4. Advised patient to remove all remaining water from humidifier canister daily and make it dry after each usage. Refill canister with fresh distilled water before each usage. 5. Sleep hygiene with regular time in bed for at least 8 hours. 6. Precautions related to driving. No driving if feel any sleepiness. 7. I will maintain prescription for PAP supplies including mask, tube, filters. 8. Follow up visit in 6 months or earlier if patient has any problems. 9. Watching weight. Thank you very much for allowing me to participate in the management of your patient. Nelson Huerta MD, PhD, FAASM. Diplomat of [place] [employer], Sleep Medicine Board by [place] [employer] Hearing Health Technician of [facility] [place]
== END ==
LOC: SLEEP 14:52
PROVIDERS: ATTEND Internal Medicine
DX: G47.33 Obstructive sleep apnea (adult) (pediatric) (principal); E78.5 Hyperlipidemia, unspecified; K21.9 Gastro-esophageal reflux disease without esophagitis; Z79.899 Other long term (current) drug therapy; Z99.89 Dependence on other enabling machines and devices; Z91.018 Allergy to other foods; Z91.012 Allergy to eggs; Z91.011 Allergy to milk products; Z91.048 Other nonmedicinal substance allergy status
CPT/HCPCS: 99212

== ENCOUNTER → 2023-05-17 | Outpatient (CLI) | payer BC ==
[2023-05-17 15:27] LABS: Basophils # (A) 0.06 X 10*3/uL (0.00-0.10); Eosinophils # (A) 0.11 X 10*3/uL (0.04-0.35); Eosinophils % (A) 1.8 %; HCT 39.8 % (37.2-46.3); HGB 12.7 d/dL (12.0-15.0); Lymphocytes % (A) 32.8 %; MCH 28.4 pg (27.0-32.0); MCHC 31.9 d/dL (32.0-37.0); Mean Platelet Volume 10.8 FL (9.5-12.2); Monocytes # (A) 0.38 X 10*3/uL (0.20-1.00); Monocytes % (A) 6.2 %; NRBC Per 100 WBC 0 X 10*3/uL (0.00-0.01); Neutrophils # (A) 3.53 X 10*3/uL (1.80-7.70); Platelet Count 258 X 10*3/uL (140-440); RBC 4.47 X 10*6/uL (4.10-5.20); RDW 12.3 % (11.5-14.5); WBC 6.09 X 10*3/uL (4.50-10.00)
[2023-05-17 16:48] LABS: BUN/Creat Ratio 15.17 Ratio (12.00-20.00); Blood Urea Nitrogen 9.1 mg/dL (9.0-27.0); Calcium 9.8 mg/dL (8.7-10.3); Chloride 102 mmol/L (96-109); Glucose 135 mg/dL (70-110); Potassium 4.6 mmol/L (3.5-5.5); Sodium 141 mmol/L (135-145)
== END | disposition home or self-care (01) ==
LOC: LABPAT 09:52
PROVIDERS: ATTEND Orthopaedic Surgery
DX: Z01.812 Encounter for preprocedural laboratory examination (principal); M75.42 Impingement syndrome of left shoulder
CPT/HCPCS: 80048; 85025; 93005

== ENCOUNTER 2023-05-30 05:45 | Day surgery (SDC) | payer BC ==
[2023-05-25 14:22] VITALS: BMI 25.3
--- NOTE | 2023-05-29 08:21 | P.HPOR ---
History of Present Illness H&P Date: 05/29/23 Chief Complaint: Left shoulder pain and stiffness The patient's a 58-year-old female who presents with progressive left shoulder pain for the past year despite conservative measures. She is having pain with overhead use and at night. She's tried therapy in addition to an injection without much relief. Review of Systems As per HPI Past Medical History Past Medical History: GERD/Reflux, Hyperlipidemia, Sleep Apnea/CPAP/BIPAP Additional Past Medical History / Comment(s): sleep apnea with c-pap machine. , pain left shoulder. History of Any Multi-Drug Resistant Organisms: None Reported Past Surgical History: Section Additional Past Surgical History / Comment(s): laser surgery for cervial dysp lasia, pilonidal cyst, COLONOSCOPY Past Anesthesia/Blood Transfusion Reactions: No Reported Reaction, Motion Sickness Additional Past Anesthesia/Blood Transfusion Reaction / Comment(s): Pt states she has to use an older anesthesia d/t her milk allergy. " Past Psychological History: No Psychological Hx Reported Smoking Status: Never smoker Past Alcohol Use History: Occasional Additional Drug Use History / Comment(s): cbd gummies and cbd lotion - Past Family History Mother Family Medical History: AFIB, Diabetes Mellitus, Hyperlipidemia Father Additional Family Medical History / Comment(s): ACOUSTIC NEUROMA Medications and Allergies Home Medications Medication Instructions Recorded Confirmed Type Cholecalciferol [Vitamin D3 (125 125 mcg PO WEEKLY 05/25/23 05/25/23 History Mcg = 5000 Iu)] Cyanocobalamin [Vitamin B-12] 500 mcg PO DAILY 05/25/23 05/25/23 History Allergies Allergy/AdvReac Type Severity Reaction Status Date / Time honey Allergy Unknown Dyspnea, Verified 05/25/23 14:23 tingling around mouth banana Allergy Dyspnea/Wyatt Verified 05/25/23 13:52 h/Hives egg Allergy Dyspnea Verified 05/25/23 13:52 garlic Allergy itching, Verified 05/25/23 13:52 tired milk Allergy itching, Verified 05/25/23 13:52 hives, tired corina Allergy swelling, Uncoded 05/25/23 13:52 hives Physical Examination - Shoulder left Tenderness with palpation: anterior Pain: with abduction, with forward flexion ROM: forward flexion: 120 degrees (Active and passive) ROM: internal rotation: lower lumbar ROM: external rotation: 30 degrees Crepitus with motion: Yes Strength: abduction: 4/5 Strength: external rotation: 4/5 Tests: internal impingement tests: positive, external impingment tests: positive Results The patient is a well-developed well-nourished female, approximately 5 foot 1, 137 pounds. HEENT exam tonsils, neck supple. She is tender about the left shoulder anterior subacromial space. Webster, Neer sign, speed test are positive. Her distal neurovascular appears intact left upper extremity. - Diagnostic results Shoulder MRI: image reviewed (Left shoulder MRI is reviewed and shows evidence of a possible partial thickness tear involving the supraspinatus along with the intra-articular portion along the biceps.) Assessment and Plan Assessment: Left shoulder impingement/rotator cuff tendinitis/possible partial thickness rotator cuff tear Left shoulder adhesive capsulitis Left proximal bicipital tendinosis Plan: I talked to the patient length regarding her condition along with treatment options. At this point she's quite symptomatic having both pain and stiffness despite attempted conservative measures. After thorough discussion shaft proceed with surgery. We will plan to proceed with left shoulder arthroscopy with probable subacromial decompression, possible rotator cuff debridement versus repair, possible biceps tenotomy versus tenodesis in addition to shoulder manipulation.
[2023-05-30] MEDS ORDERED: LIDOCAINE 1% (10MG/ML) FOR IV START INTRADERMA PRN (05:57)
[2023-05-30] MEDS ORDERED: ONDANSETRON 4 MG/2 ML VIAL IVP ONE (05:57)
[2023-05-30] MEDS ORDERED: DEXAMETHASONE SOD PHOSPHATE 4 MG/ML 1 ML VIAL IV ONE (05:57)
[2023-05-30] MEDS ORDERED: MIDAZOLAM 2 MG/2 ML VIAL IV PRN (05:57)
[2023-05-30] MEDS ORDERED: LACTATED RINGERS 1,000 ML IV SCH (05:57)
[2023-05-30] MEDS ORDERED: fentaNYL (PF) 50 MCG/ML 2 ML AMP IVP PRN (07:00)
[2023-05-30] MEDS ORDERED: METOCLOPRAMIDE 5 MG/ML 2 ML VIAL IVP PRN (07:00)
[2023-05-30] MEDS ORDERED: fentaNYL (PF) 50 MCG/ML 2 ML AMP IVP ONE (07:04)
[2023-05-30 07:23] VITALS: RESP 16
[2023-05-30] MEDS ORDERED: LIDOCAINE 2% INJ 20 MG/ML (2 ML VIAL) ONE (07:25)
[2023-05-30] MEDS ORDERED: fentaNYL (PF) 50 MCG/ML 2 ML AMP ONE (07:25)
[2023-05-30] MEDS ORDERED: PHENYLEPHRINE 10 MG/ML VIAL ONE (07:25)
[2023-05-30] MEDS ORDERED: SUCCINYLCHOLINE CHLORIDE 200 MG/10 ML VIAL IV ONE (07:25)
[2023-05-30] MEDS ORDERED: ROPIVACAINE 5 MG/ML 30 ML VIAL ONE (07:25)
[2023-05-30] MEDS ORDERED: ETOMIDATE 2 MG/ML 10 ML VIAL ONE (07:25)
[2023-05-30] MEDS ORDERED: ePHEDrine 50 MG/ML 1 ML VIAL ONE (07:25)
[2023-05-30] MEDS ORDERED: DEXAMETHASONE SOD PHOSPHATE 4 MG/ML 1 ML VIAL ONE (07:25)
--- NOTE | 2023-05-30 08:03 | P.ANPRN ---
Procedure Note - Anesthesia - Nerve Block Performed Left Interscalene Single Time Out Performed: Yes ([id number]) Date of Procedure: 05/30/23 Location of Patient: PreOp Indication: Acute Post-Operative Pain, Dx/Pain Location (Left shoulder), Requested by Surgeon Specifically requested for management of pain by DrJamar: Suresh Rogers Sedation Type: Sedate with meaningful contact maintained Preparation: Sterile Prep Position: Supine Catheter: None Needle Types: Pajunk Needle Gauge: 21 Ultrasound used to visualize needle placement: Yes Ultrasound used to observe medication spread: Yes Injectate: 0.5% Ropivacaine (see comment for volume) (30 mL +4 mg of Decadron) Blood Aspirated: No Pain Paresthesia on Injection Noted: No Resistance on Injection: Normal Image Stored and Saved: Yes Events: Uneventful and Well Tolerated
[2023-05-30] MEDS ORDERED: EPINEPHrine (PF) 1 ML in SODIUM CHLORIDE 0.9% IRRIGATIO 3,000 ML IRRIGATION ONE ×7 (08:04→08:05)
--- NOTE | 2023-05-30 08:37 | P.OP ---
Date of Procedure: 05/30/23 Preoperative Diagnosis: Left shoulder impingement/adhesive capsulitis/partial rotator cuff tear Postoperative Diagnosis: Left shoulder synovitis/partial thickness bursal surface rotator cuff tear Procedure(s) Performed: Left shoulder arthroscopic subacromial decompression/rotator cuff debridement/synovectomy/manipulation under anesthesia Anesthesia: chalo MONROY Surgeon: Suresh Rogers Bartender #1: Delio Reddy Estimated Blood Loss (ml): 10 Pathology: none sent Condition: stable Disposition: PACU Indications for Procedure: The patient's a 58-year-old female who presents with progressive left shoulder stiffness and pain despite conservative measures. A discussion of the risks and benefits of operative intervention versus continued conservative measures was made with the patient. She opted to proceed with surgery. Operative risks to include infection, neurovascular injury, development of blood clots, possible recurrence of stiffness and need for subsequent procedures was discussed. Informed consent was obtained. Operative Findings: As below Description of Procedure: The patient was brought to the operating room, and after induction of general anesthesia was placed in a beachchair position. A preoperative interscalene block was placed for postoperative analgesia. I examined the left shoulder. There was significant block to passive motion. I then performed a gentle manipulation first the arm at the side obtaining full external rotation. Moderate adhesions were encountered. I then obtained full forward elevation. Again moderate adhesions were encountered. The left upper extremity was prepped and draped in normal fashion. The bony outlines the acromion, distal clavicle, and coracoid process were outlined with a skin marker. The glenohumeral joint was inflated with 50 mL of saline utilizing a spinal needle from posterior approach. A posterior portal was made through a 5 mm skin incision 1 cm medial and inferior to the posterior lateral border time. A blunt trocar was used to easily into the joint. Diagnostic arthroscopy was performed. An anterior portal was made just lateral to the coracoid process entering the joint above the subscapularis tendon. The subscapularis tendon appeared to be intact. Marked synovitis involving the rotator interval was noted. This was debrided with a motorized shaver. Anterior labrum was intact. The inferior recess was inspected. The posterior labrum was intact. A small longitudinal split tear involving the intrathecal portion along the biceps was noted. Remaining biceps appeared stable and intact. On inspection the rotator cuff, it appeared to be intact on the articular surface. The arthroscope was placed into the subacromial space. A lateral portal was made 2 centimeters inferior to the anterior lateral border of the acromion. The soft tissue on the undersurface of the acromion was debrided with a motorized shaver and electrocautery clearly defining the anterior medial and lateral borders as well as the distal clavicle. An anterior inferior acromioplasty was performed with a motorized yesi starting anterolateral, then extending this posteriorly, then extending this medially. I converted to a flat acromion and this was verified in the posterior and lateral viewing portals. Significant bursal thickening was debrided with motorized shaver. The rotator cuff was inspected on the bursal surface. Partial thickness tearing involving the supraspinatus was noted involving approximately 10% of the tendon thickness. This debrided back to stable base with motorized shaver. The remaining rotator cuff was stable and intact. The arthroscope was then removed. The portals were closed with simple 3-0 nylon sutures. A sterile dressing was applied in addition to a sling. The patient was then awoken from general anesthesia and transferred to recovery room in good condition. Blood loss was estimated at 10 mL. No complications were incurred. Sponge and needle counts were correct in the case. Delio GOMEZ assisted and the major components of the case to include arm positioning, manipulation, decompression, and debridement.
[2023-05-30 08:45] VITALS: TEMP 97
[2023-05-30] MEDS: HYDROmorphone 0.5 MG/0.5 ML SYRINGE IVP PRN ×2 (09:03→09:12)
[2023-05-30] MEDS ORDERED: ONDANSETRON 4 MG/2 ML VIAL ONE (10:37)
[2023-05-30] MEDS ORDERED: SCOPOLAMINE 1 MG/72 HR PATCH TRANSDERM ONE (11:01)
[2023-05-30 11:05] VITALS: BP 117/74; PULSE 88
== END 2023-05-30 11:40 | disposition home or self-care (01) ==
LOC: OR 05:45
PROVIDERS: ATTEND Orthopaedic Surgery
DX: M75.42 Impingement syndrome of left shoulder (principal); G89.18 Other acute postprocedural pain; K21.9 Gastro-esophageal reflux disease without esophagitis; E78.5 Hyperlipidemia, unspecified; G47.33 Obstructive sleep apnea (adult) (pediatric); Z98.891 History of uterine scar from previous surgery; Z86.59 Personal history of other mental and behavioral disorders; Z82.49 Family history of ischemic heart disease and other diseases of the circulatory system; Z83.3 Family history of diabetes mellitus; Z79.899 Other long term (current) drug therapy
CPT/HCPCS: 64415; 29826; 29827; J2250; J0330; J1100; J2405; J0690; J0171; J3010; J2795; J1170; J2001; J2371

== ENCOUNTER → 2023-08-16 | Outpatient (CLI) | payer BC ==
--- NOTE | 2023-08-16 18:21 | P.PN ---
Subjective DATE: 08/16/2023 FOLLOW UP VISIT. Patient with obstructive sleep apnea hypopnea syndrome return to sleep center for follow-up visit. Information from previous visit have been reviewed. Patient is using PAP equipment every night for the whole night, getting PAP supplies in time. The patient does not have significant problems with the mask, PAP unit and humidification. [place] sleepiness scale is 7. I checked information from PAP unit. PAP unit pressure 5-9, average 8.6 cm H2O. Usage is 93 % for more then 4 hours, average 6.5 hours per night. Leak is 9.1 l/m, which is in acceptable range. Apnea Hypopnea Index is 3.1, which is normal. 2 times per months apnea-hypopnea index was increased to around 8. MEDICATIONS:1. Rosuvastatin 5 mg once a day 2. Vitamin B12. 3. [place] During physical exam: GENERAL: A pleasant patient without any distress. VITAL SIGNS: BP 126/82, HR 97, RR16 , [id number], temperature 97.4, oxygen saturation at room air 91 % . HEENT: PERRLA, EOMI.low position of soft palate, Mallapati 3 . NECK: Supple. No JVD. LUNGS: Clear to percussion and to auscultation. Good air exchange. No wheezing or rhonchi. HEART: S1, S2 regular. ABDOMEN: Soft and nontender.[] EXTREMITIES: No clubbing or cyanosis. FROZEN FOODS MANAGER: Awake, alert, and oriented x3. No focal deficit. I changed parameters in CPAP unit to the range of pressure 5-10 cm of water. Impressions: 1. Obstructive sleep apnea-hypopnea syndrome. Patient demonstrated great compliance with treatment, benefiting from treatment. 2. hyperlipidemia. 3. history of acid reflux. 4. ALLERGY. Plan: 1. Continue using PAP equipment every night for the whole night. 2. To change air filter at least 1-2 times per month. 3. PAP unit should stay lower then position of the head. 4. Advised patient to remove all remaining water from humidifier canister daily and make it dry after each usage. Refill canister with fresh distilled water before each usage. 5. Sleep hygiene with regular time in bed for at least 8 hours. 6. Precautions related to driving. No driving if feel any sleepiness. 7. I will maintain prescription for PAP supplies including mask, tube, filters. 8. Follow up visit in 6 months or earlier if patient has any problems. Thank you very much for allowing me to participate in the management of your patient. Nelson Huerta MD, PhD, FAASM. Diplomat of [place] Board [employer] Sleep Medicine, Sleep Medicine Board by [place] [employer] of [employer] [place] Roller of [facility] [place]
== END ==
LOC: 3 N SLEEP 14:50
PROVIDERS: ATTEND Internal Medicine
DX: G47.33 Obstructive sleep apnea (adult) (pediatric) (principal); E78.5 Hyperlipidemia, unspecified; K21.9 Gastro-esophageal reflux disease without esophagitis; T78.40XA Allergy, unspecified, initial encounter; Z79.899 Other long term (current) drug therapy; Z99.89 Dependence on other enabling machines and devices; Z91.018 Allergy to other foods; Z91.012 Allergy to eggs; Z91.011 Allergy to milk products; Z88.8 Allergy status to other drugs, medicaments and biological substances
CPT/HCPCS: 99212

== ENCOUNTER → 2024-03-06 | Outpatient (CLI) | payer BC ==
[2024-03-06 11:37] VITALS: BP 120/71; PULSE 64; RESP 12; TEMP 97.8
--- NOTE | 2024-03-06 12:09 | P.PN ---
Subjective DATE: 03/06/2024 FOLLOW UP VISIT. Patient with obstructive sleep apnea hypopnea syndrome return to sleep center for follow-up visit. Information from previous visit have been reviewed. Patient is using PAP equipment every night for the whole night, getting PAP supplies in time. The patient does not have significant problems with the mask, PAP unit and humidification. [place] sleepiness scale is 6, which is normal. I checked information from PAP unit. PAP unit pressure 5-10, average 9.1 cm H2O. Usage is 90% for more then 4 hours, average 7.2 hours per night. Leak is 2.5 l/m, which is in acceptable range. Apnea Hypopnea Index is 2.2, which is normal. MEDICATIONS:1. Rosuvastatin 5 mg once a day 2. Prednisone 10 mg once a day 3. Vitamin B12 4. Vitamin D3 During physical exam: GENERAL: A pleasant patient without any distress. VITAL SIGNS: Please see below. HEENT: PERRLA, EOMI.low position of soft palate, Mallapati 3 . NECK: Supple. No JVD. LUNGS: Clear to percussion and to auscultation. Good air exchange. No wheezing or rhonchi. HEART: S1, S2 regular. ABDOMEN: Soft and nontender.[] EXTREMITIES: No clubbing or cyanosis. CUTTING INSPECTOR: Awake, alert, and oriented x3. No focal deficit. Impressions: 1. Obstructive sleep apnea-hypopnea syndrome. Patient demonstrated great compliance with treatment, benefiting from treatment. 2. Status post recent pneumonia. 3. Hyperlipidemia. 4. Allergy. 5. History of acid reflux. Plan: 1. Continue using PAP equipment every night for the whole night. 2. To change air filter at least 1-2 times per month. 3. PAP unit should stay lower then position of the head. 4. Advised patient to remove all remaining water from humidifier canister daily and make it dry after each usage. Refill canister with fresh distilled water before each usage. 5. Sleep hygiene with regular time in bed for at least 8 hours. 6. Precautions related to driving. No driving if feel any sleepiness. 7. I will maintain prescription for PAP supplies including mask, tube, filters. 8. Follow up visit in 6 months or earlier if patient has any problems. 9. Watching weight. Thank you very much for allowing me to participate in the management of your patient. Nelson Huerta MD, PhD, FAASM. Diplomat of [place] [employer], Sleep Medicine Board by [employer] Heating Worker of [facility] [place] Objective - Vital Signs Vital signs: Vital Signs Temp 97.8 F 03/06/24 11:28 Pulse 64 03/06/24 11:28 Resp 12 03/06/24 11:28 BP 120/71 03/06/24 11:28 Pulse Ox 100 03/06/24 11:28 FiO2 Intake & Output 03/05/24 03/06/24 03/06/24 18:59 06:59 18:59 Weight 65.771 kg
== END ==
LOC: 3 N SLEEP 11:15
PROVIDERS: ATTEND Internal Medicine
DX: G47.33 Obstructive sleep apnea (adult) (pediatric) (principal); E78.5 Hyperlipidemia, unspecified; K21.9 Gastro-esophageal reflux disease without esophagitis; Z79.899 Other long term (current) drug therapy; Z91.09 Other allergy status, other than to drugs and biological substances; Z99.89 Dependence on other enabling machines and devices; Z87.01 Personal history of pneumonia (recurrent); Z91.018 Allergy to other foods; Z91.012 Allergy to eggs; Z91.011 Allergy to milk products
CPT/HCPCS: 99212

== ENCOUNTER → 2024-03-18 | Outpatient (CLI) | payer BC ==
--- NOTE | 2024-03-18 18:09 | BD ---
EXAMINATION TYPE: Axial Bone Density DATE OF EXAM: 03/18/2024 CLINICAL HISTORY: 59 years old Female. ICD-10 CODE: Z78.0 ASYMPTOMATIC MENOPAUSAL STATE Height: 61.75in Weight: 146lb FRAX RISK QUESTIONS: Secondary Osteoporosis: RISK FACTORS HISTORY OF: MEDICATIONS: EXAM MEASUREMENTS: Bone mineral densitometry was performed using the Touchstorm System. Bone mineral density as measured about the Lumbar spine is: ----- L1-L4(G/cm2): 0.885 T Score Values are as follows: ----- L1: -2.3 ----- L2: -2.6 ----- L3: -2.6 ----- L4: -2.4 ----- L1-L4: -2.5 Z Score Values are as follows: ----- L1: -1.2 ----- L2: -1.5 ----- L3: -1.5 ----- L4: -1.3 ----- L1-L4: -1.3 First dexa at [facility] Bone mineral density about the R hip (g/cm2): 0.843 Bone mineral density about the L hip (g/cm2): 0.824 T Score values are as follows: -----R Neck: -1.9 -----L Neck: -2.0 -----R Total: -1.3 -----L Total: -1.5 Z Score values are as follows: -----R Neck: -0.7 -----L Neck: -0.8 -----R Total: -0.4 -----L Total: -0.6 First dexa at [facility] FRAX%s: The graph provided illustrates a 9.8% chance for a major osteoporotic fx and a 1.3% chance fo r the hips probability for fx in 10 years time. IMPRESSION: Osteoporosis (T Score less than -2.5). There is increased fracture risk and therapy is usually indicated based on age. Re-Screen 1-2 years. NOTE: T-SCORE=SD OF THE YOUNG ADULT MEAN.
== END | disposition home or self-care (01) ==
LOC: RADBDWWP 07:59
PROVIDERS: ATTEND Family Medicine
DX: M81.0 Age-related osteoporosis without current pathological fracture (principal); M85.89 Other specified disorders of bone density and structure, multiple sites; Z78.0 Asymptomatic menopausal state
CPT/HCPCS: 77080

== ENCOUNTER → 2024-04-04 | Outpatient (CLI) | payer BC ==
--- NOTE | 2024-04-04 10:11 | NM ---
Nuclear medicine hepatobiliary scan. HISTORY: Pain. DOSAGE: The patient received 8 0z Ensure plus and 4.9 mCi of Technetium 99m Choletec. FINDINGS: There is normal hepatic extraction. The gallbladder is seen by 10 minutes. There is bilia ry to bowel clearance by 50 minutes. Ejection fraction is 76%. IMPRESSION: 1. Normal hepatobiliary exam
== END | disposition home or self-care (01) ==
LOC: RADNMMAIN 06:43
PROVIDERS: ATTEND Family Medicine
DX: R10.11 Right upper quadrant pain (principal)
CPT/HCPCS: 78226; A9537

== ENCOUNTER → 2024-10-16 | Outpatient (CLI) | payer BC ==
[2024-10-16 11:24] VITALS: BP 116/73; PULSE 74; RESP 16; TEMP 97.6
--- NOTE | 2024-10-16 11:43 | P.PROGSL ---
Subjective DATE: 10/16/2024 FOLLOW UP VISIT. Patient with obstructive sleep apnea hypopnea syndrome return to sleep center for follow-up visit. Information from previous visit have been reviewed. Patient is using PAP equipment every night for the whole night, getting PAP supplies in time. The patient does not have significant problems with the mask, PAP unit and humidification. [place] sleepiness scale is 4. I checked information from PAP unit. PAP unit pressure 5-10, average 9.1 cm H2O. Usage is 696% for more then 4 hours, average 6.6 hours per night. Leak is 4l/m, which is in acceptable range. Apnea Hypopnea Index is 2.1, which is normal. MEDICATIONS have been reviewed, please see below. During physical exam: GENERAL: A pleasant patient without any distress. VITAL SIGNS: Please see below, weight is 146 lbs. HEENT: PERRLA, EOMI.low position of soft palate, Mallapati 3. NECK: Supple. No JVD. LUNGS: Clear to percussion and to auscultation. Good air exchange. No wheezing or rhonchi. HEART: S1, S2 regular. ABDOMEN: Soft and nontender.[] EXTREMITIES: No clubbing or cyanosis. SAWING AND ASSEMBLY SUPERVISOR: Awake, alert, and oriented x3. No focal deficit. Impressions: 1. Obstructive sleep apnea-hypopnea syndrome. Patient demonstrated great compliance with treatment, benefiting from treatment. 2. Hyperlipidemia. 3. Allergy. 4. Acid reflux. 5. History of pneumonia. I slightly increased range of the pressure in CPAP unit to 5-11 cm of water Plan: 1. Continue using PAP equipment every night for the whole night. 2. Sleep hygiene with regular time in bed for at least 7.5-8 hours 3. PAP unit should stay lower then position of the head. 4. Advised patient to remove all remaining water from humidifier canister daily and make it dry after each usage. Refill canister with fresh distilled water before each usage. 5. Watching weight. 6. Precautions related to driving. No driving if feel any sleepiness. 7. I will maintain prescription for PAP supplies including mask, tube, filters. 8. Follow up visit in 6 months or earlier if patient has any problems. Thank you very much for allowing me to participate in the management of your patient. Nelson Huerta MD, PhD, FAASM. Diplomat of [place], Sleep Medicine Board by [employer] Band Saw Operator Cake Cutting [facility] [place] Objective - Vital Signs Vital Signs: Vital Signs Temp 97.6 F 10/16/24 11:23 Pulse 74 10/16/24 11:23 Resp 16 10/16/24 11:23 BP 116/73 10/16/24 11:23 Pulse Ox 100 10/16/24 11:23 FiO2 Intake & Output 10/15/24 10/16/24 10/16/24 18:59 06:59 18:59 Weight 66.224 kg Home Medications: Home Medications Medication Instructions Recorded Confirmed Type Cholecalciferol [Vitamin D3 (125 125 mcg PO WEEKLY 05/25/23 10/16/24 History Mcg = 5000 Iu)] Cyanocobalamin [Vitamin B-12] 500 mcg PO DAILY 05/25/23 10/16/24 History HYDROcodone/APAP 7.5-325MG [[place] 1 each PO Q6HR PRN #28 tab 05/30/23 Rx 7.5] methylPREDNISolone Dose Pack 4 mg PO DIRECTED #21 tab 05/30/23 03/06/24 Rx [Medrol Dose Pack] Rosuvastatin Calcium 5 mg PO QID 03/06/24 10/16/24 History
== END ==
LOC: 3 N SLEEP 10:50
PROVIDERS: ATTEND Internal Medicine
DX: G47.33 Obstructive sleep apnea (adult) (pediatric) (principal); E78.5 Hyperlipidemia, unspecified; K21.9 Gastro-esophageal reflux disease without esophagitis; Z99.89 Dependence on other enabling machines and devices; Z91.030 Bee allergy status; Z91.012 Allergy to eggs; Z91.011 Allergy to milk products; Z91.018 Allergy to other foods; Z91.09 Other allergy status, other than to drugs and biological substances; Z87.01 Personal history of pneumonia (recurrent)
CPT/HCPCS: 99212

== ENCOUNTER 2024-11-01 07:13 | Emergency (ER) | payer BC ==
--- NOTE | 2024-11-01 07:30 | ED ---
Female Urogenital HPI - General Chief complaint: Urogenital Stated complaint: uti Time Seen by Provider: 11/01/24 07:29 Source: patient, RN notes reviewed Mode of arrival: ambulatory Limitations: no limitations - History of Present Illness Initial comments: 59-year-old female presented to the ER for evaluation of bladder spasms. She states yesterday she was having subtle intermittent spasms of her bladder all day. She states she woke up around 5:00 this morning and noticed left-sided flank pain. She attempted to urinate without success. She states she has a pressure sensation to her lower abdomen at this time. She states the pain was so severe this morning that caused her to have nausea and vomiting. Admits to dysuria. She has not taken anything for her symptoms at this time. No fevers. No history of kidney stones. No hematuria or other complaints. - Related Data Home Medications Medication Instructions Recorded Confirmed Cholecalciferol [Vitamin D3 (125 125 mcg PO WEEKLY 05/25/23 10/16/24 Mcg = 5000 Iu)] Cyanocobalamin [Vitamin B-12] 500 mcg PO DAILY 05/25/23 10/16/24 Rosuvastatin Calcium 5 mg PO QID 03/06/24 10/16/24 Previous Rx's Medication Instructions Recorded HYDROcodone/APAP 7.5-325MG [[place] 1 each PO Q6HR PRN #28 tab 05/30/23 7.5] methylPREDNISolone Dose Pack 4 mg PO DIRECTED #21 tab 05/30/23 [Medrol Dose Pack] Nitrofurantoin Monohyd/M-Cryst 100 mg PO Q12HR #14 cap 11/01/24 [Macrobid] Allergies Allergy/AdvReac Type Severity Reaction Status Date / Time honey Allergy Unknown Dyspnea, Verified 11/01/24 07:15 tingling around mouth banana Allergy Dyspnea/[place] Verified 11/01/24 07:15 h/Hives egg Allergy Dyspnea Verified 11/01/24 07:15 garlic Allergy itching, Verified 11/01/24 07:15 tired milk Allergy itching, Verified 11/01/24 07:15 hives, tired corina Allergy swelling, Uncoded 11/01/24 07:15 hives Review of Systems ROS Statement: Those systems with pertinent positive or pertinent negative responses have been documented in the HPI. ROS Other: All systems not noted in ROS Statement are negative. Past Medical History Past Medical History: GERD/Reflux, Hyperlipidemia, Skin Disorder Additional Past Medical History / Comment(s): ECZEMA History of Any Multi-Drug Resistant Organisms: None Reported Past Surgical History: Section, Orthopedic Surgery Additional Past Surgical History / Comment(s): laser surgery for cervial dysplasia, pilonidal cyst, COLONOSCOPY Past Anesthesia/Blood Transfusion Reactions: Motion Sickness Additional Past Anesthesia/Blood Transfusion Reaction / Comment(s): Pt states she has to use an older anesthesia d/t her milk allergy. " Past Psychological History: No Psychological Hx Reported Smoking Status: Never smoker Past Alcohol Use History: None Reported Past Drug Use History: None Reported - Past Family History Mother Family Medical History: AFIB, Diabetes Mellitus, Hyperlipidemia Father Additional Family Medical History / Comment(s): ACOUSTIC NEUROMA General Exam Limitations: no limitations General appearance: alert, in no apparent distress Respiratory exam: Present: normal lung sounds bilaterally. Absent: respiratory distress, wheezes, rales, rhonchi, stridor Cardiovascular Exam: Present: regular rate, normal rhythm, normal heart sounds. Absent: systolic murmur, diastolic murmur, rubs, gallop, clicks GI/Abdominal exam: Present: soft, normal bowel sounds, other ("Uncomfortable" suprapubic). Absent: distended, tenderness, guarding, rebound, rigid Back exam: Present: CVA tenderness (L) Neurological exam: Present: alert, oriented X3, CN II-XII intact Skin exam: Present: warm, dry, intact, normal color. Absent: rash Course Vital Signs 11/01/24 11/01/24 07:15 10:06 Temperature 98.2 F 98.1 F Pulse Rate 76 73 Respiratory 18 16 Rate Blood Pressure 125/78 115/73 O2 Sat by Pulse 99 99 Oximetry Medical Decision Making - Medical Decision Making Was pt. sent in by a medical professional or institution (, PA, SANDING MACHINE BUFFER, urgent care, hospital, or skilled nursing...) When possible be specific @ -No Did you speak to anyone other than the patient for history (EMS, parent, family, police, friend...)? What history was obtained from this source @ -No Did you review nursing and triage notes (agree or disagree)? Why? @ -I reviewed and agree with nursing and triage notes Were old charts reviewed (outside hosp., previous admission, EMS record, old EKG, old radiological studies, urgent care reports/EKG's, skilled nursing records)? Report findings @ -No old charts were reviewed Differential Diagnosis (chest pain, altered mental status, abdominal pain women, abdominal pain men, vaginal bleeding, weakness, fever, dyspnea, syncope, headache, dizziness, GI bleed, back pain, seizure, CVA, palpatations, mental health, musculoskeletal)? @ -Differential Abdominal Pain Women:Appendicitis, Cholecystitis, diverticulosis, ischemic bowel, pancreatitis, hepatitis, UTI, gastroenteritis, AAA, incarcerated hernia, bowel obstruction, constipation, inflammatory bowel, hepatitis, peptic ulcer disease, splenic infarction, perforated viscus, vulvitis, ovarian torsion, PID, kidney stone, placenta abruption, this is not meant to be an all-inclusive list EKG interpreted by me (3pts min.). @ -None done X-rays interpreted by me (1pt min.). @ -None done CT interpreted by me (1pt min.). @ -CT abdomen pelvis showing no nephrolithiasis or hydronephrosis. Slight fullness of bilateral ureters probably due to prominent bladder distention. Possible mild fold thickening of small bowel loops along left side of the abdomen. Fibroid uterus with dominant fibroid measuring 4.3 cm. U/S interpreted by me (1pt. min.). @ -None done What testing was considered but not performed or refused? (CT, X-rays, U/S, labs)? Why? @ -None What meds were considered but not given or refused? Why? @ -None Did you discuss the management of the patient with other professionals (professionals i.e. , PA, SANDING MACHINE BUFFER, lab, RT, psych nurse, clinical social work aide, case management specialist, teacher, probation and parole officer, nurse case manager)? Give summary @ -No Was smoking cessation discussed for >3mins.? @ -No Was critical care preformed (if so, how long)? @ -No Were there social determinants of health that impacted care today? How? (Homelessness, low income, unemployed, alcoholism, drug addiction, transportation, low edu. Level, literacy, decrease access to med. care, long term, rehab)? @ -No Was there de-escalation of care discussed even if they declined (Discuss DNR or withdrawal of care, Hospice)? DNR status @ -No What co-morbidities impacted this encounter? (DM, HTN, Smoking, COPD, CAD, Cancer, CVA, ARF, Chemo, Hep., AIDS, mental health diagnosis, sleep apnea, morbid obesity)? @ -None Was patient admitted / discharged? Hospital course, mention meds given and route, prescriptions, significant lab abnormalities, going to OR and other pert inent info. @ -Discharge. 59-year-old female presented to the ER for evaluation of bladder spasms and dysuria. Upon rooming, history and physical exam completed. Vitals within normal limits. Patient in no signs of acute distress nontoxic- appearing. There is suprapubic "uncomfortable" sensation upon palpation. Left CVA tenderness. Laboratory studies obtained unremarkable. Urinalysis hemorr hagic with 48 urine RBCs and moderate blood. CT abdomen pelvis performed at that time due to concern of possible nephrolithiasis. CT abdomen pelvis negative for acute nephrolithiasis or hydronephrosis. Patient will be started on Macrobid for concern of UTI. Urine culture pending. Patient given IV fluids in the ER. Upon reevaluation, patient is stable for discharge. Results discussed with patient, all questions answered. Strict return parameters discussed. Patient discharged in stable condition with follow-up to PCP. Patient verbally expressed understanding and agreement with care plan. Case discussed with ED attending, Dr. Davis. Undiagnosed new problem with uncertain prognosis? @ -No Drug Therapy requiring intensive monitoring for toxicity (Heparin, Nitro, Insulin, Cardizem)? @ -No Were any procedures done? @ -No Diagnosis/symptom? @ -Cystitis Acute, or Chronic, or Acute on Chronic? @ -Acute Uncomplicated (without systemic symptoms) or Complicated (systemic symptoms)? @ -Uncomplicated Side effects of treatment? @ -No Exacerbation, Progression, or Severe Exacerbation? @ -No Poses a threat to life or bodily function? How? (Chest pain, [place], [place], pneumonia, PE, COPD, DKA, ARF, appy, cholecystitis, CVA, Diverticulitis, Homicidal, Suicidal, threat to staff... and all critical care pts) @ -No - Lab Data Result diagrams: 11/01/24 07:32 11/01/24 07:32 Lab Results 11/01/24 11/01/24 11/01/24 Range/Units 07:32 07:32 07:32 WBC 9.5 (3.8-10.6) k/uL RBC 4.35 (3.80-5.40) m/uL Hgb 12.2 (11.4-16.0) gm/dL Hct 37.7 (34.0-46.0) % MCV 86.5 (80.0-100.0) fL MCH 28.1 (25.0-35.0) pg MCHC 32.5 (31.0-37.0) g/dL RDW 11.8 (11.5-15.5) % Plt Count 330 (150-450) k/uL MPV 7.5 Neutrophils % 70 % Lymphocytes % 22 % Monocytes % 4 % Eosinophils % 2 % Basophils % 1 % Neutrophils # 6.6 (1.3-7.7) k/uL Lymphocytes # 2.0 (1.0-4.8) k/uL Monocytes # 0.4 (0-1.0) k/uL Eosinophils # 0.2 (0-0.7) k/uL Basophils # 0.0 (0-0.2) k/uL Sodium 141 (137-145) mmol/L Potassium 4.0 (3.5-5.1) mmol/L Chloride 106 (98-107) mmol/L Carbon Dioxide 29 (22-30) mmol/L Anion Gap 6 mmol/L BUN 9 (7-17) mg/dL Creatinine 0.66 (0.52-1.04) mg/dL Est GFR (CKD-EPI)AfAm >90 (>60 ml/min/1.73 sqM) Est GFR (CKD-EPI)NonAf >90 (>60 ml/min/1.73 sqM) Glucose 103 H (74-99) mg/dL Calcium 8.9 (8.4-10.2) mg/dL Total Bilirubin 0.5 (0.2-1.3) mg/dL AST 18 (14-36) U/L ALT 20 (4-34) U/L Alkaline Phosphatase 78 (38-126) U/L Total Protein 6.7 (6.3-8.2) g/dL Albumin 4.2 (3.5-5.0) g/dL Urine Color Light Yellow Urine Appearance Clear (Clear) Urine pH 5.0 (5.0-8.0) Ur Specific [place] 1.021 (1.001-1.035) Urine Protein Negative (Negative) Urine Glucose (UA) Negative (Negative) Urine Ketones Negative (Negative) Urine Blood Moderate H (Negative) Urine Nitrite Negative (Negative) Urine Bilirubin Negative (Negative) Urine Urobilinogen <2.0 (<2.0) mg/dL Ur Leukocyte Esterase Negative (Negative) Urine RBC 48 H (0-5) /hpf Urine WBC 2 (0-5) /hpf Ur Squamous Epith Cells 1 (0-4) /hpf Urine Mucus Rare H (None) /hpf - Radiology Data Radiology results: report reviewed, image reviewed Disposition Clinical Impression: Cystitis Disposition: HOME SELF-CARE Condition: Stable Instructions (If sedation given, give patient instructions): Urinary Tract Infection in Women (ED) Additional Instructions: Follow-up with PCP. Return to the ER for any new or worsening symptoms. Prescriptions: Nitrofurantoin Monohyd/M-Cryst [Macrobid] 100 mg PO Q12HR #14 cap Is patient prescribed a controlled substance at d/c from ED?: No Referrals: Karlos Gutierrez MD [STAFF PHYSICIAN] - 1-2 days Time of Disposition: 10:09
[2024-11-01] MEDS: SODIUM CHLORIDE 0.9% 1,000 ML IV STA (07:42)
[2024-11-01 08:03] LABS: Basophils % (A) 1 %; Eosinophils # (A) 0.2 k/uL (0-0.7); Eosinophils % (A) 2 %; HCT 37.7 % (34.0-46.0); HGB 12.2 gm/dL (11.4-16.0); Lymphocytes % (A) 22 %; MCH 28.1 pg (25.0-35.0); MCHC 32.5 g/dL (31.0-37.0); MCV 86.5 fL (80.0-100.0); Mean Platelet Volume 7.5; Monocytes # (A) 0.4 k/uL (0-1.0); Monocytes % (A) 4 %; Neutrophils # (A) 6.6 k/uL (1.3-7.7); Neutrophils % (A) 70 %; Platelet Count 330 k/uL (150-450); RBC 4.35 m/uL (3.80-5.40); RDW 11.8 % (11.5-15.5); WBC 9.5 k/uL (3.8-10.6)
[2024-11-01 08:14] LABS: ALT 20 U/L (4-34); AST 18 U/L (14-36); African American GFR (CKD) >90 (>60 ml/min/1.73 sqM); Albumin 4.2 g/dL (3.5-5.0); Alkaline Phosphatase 78 U/L (38-126); Anion Gap 6 mmol/L; Blood Urea Nitrogen 9 mg/dL (7-17); Calcium 8.9 mg/dL (8.4-10.2); Carbon Dioxide 29 mmol/L (22-30); Chloride 106 mmol/L (98-107); Glucose 103 mg/dL (74-99); Non-African American GFR(CKD) >90 (>60 ml/min/1.73 sqM); Sodium 141 mmol/L (137-145); Total Bilirubin 0.5 mg/dL (0.2-1.3); Total Protein 6.7 g/dL (6.3-8.2)
[2024-11-01 08:57] LABS: Appearance,Urine Clear (Clear); Bilirubin,Urine Negative (Negative); Blood,Urine Moderate (Negative); Color,Urine Light Yellow; Glucose,Urine (UA) Negative (Negative); Ketones,Urine Negative (Negative); Leukocyte Esterase,Urine Negative (Negative); Mucus,Urine Rare /hpf; Nitrite,Urine Negative (Negative); Protein,Urine Negative (Negative); RBC,Urine 48 /hpf (0-5); Specific Gravity,Urine 1.021 (1.001-1.035); Squamous Epithelial Cell,Urine 1 /hpf (0-4); Urobilinogen,Urine <2.0 mg/dL (<2.0); WBC,Urine 2 /hpf (0-5)
--- NOTE | 2024-11-01 09:53 | CT ---
EXAMINATION TYPE: CT abdomen pelvis wo con DATE OF EXAM: 11/01/2024 9:40 AM COMPARISON: 10/12/2015 CLINICAL INDICATION: Female, 59 years old with history of bladder spasms/left flank pain blood in uri ne, Bladder spasms, LT flank pain, blood in urine, TECHNIQUE: Contiguous axial scanning of the abdomen and pelvis without IV contrast. Coronal and sagit javi reconstructions performed. CT DLP: 428.1 mGycm. Automated exposure control for dose reduction was used. FINDINGS: Heart is normal size without pericardial effusion. There may be some minimal emphysematous changes in the lower lungs. No pleural effusion. There is hepatomegaly at 20.3 cm. Otherwise, noncontrast appearance of the liver, gallbladder, adrena l glands, spleen with inferior splenule, and pancreas show no gross abnormality Extrarenal pelvis both kidneys. Some mild prominence to the bilateral ureters probably due to promine nt bladder distention. No nephrolithiasis or hydronephrosis. No dilated small bowel, free fluid, or free air. Possible mild fold thickening of bowel loops along t he left side of the abdomen. Scattered moderate stool burden. No pericolonic inflammatory change. Prominent distention of the urinary bladder. Uterus is anteverted. There is underlying fibrotic villanueva e with the dominant 4.3 cm right lateral uterine body fibroid and a 1.9 cm fundal fibroid. Ovaries no t clearly delineated from adjacent bowel. Prominent left periuterine varices redemonstrated. Pelvic p hleboliths. No abnormal fluid collection in the pelvis or pelvic lymphadenopathy. Bones: Moderate degenerative disc disease L4-L5 and L5-S1. Bulging disc at L3-L4 mildly narrows the s joey canal. IMPRESSION: 1. No nephrolithiasis or hydronephrosis. Slight fullness of the bilateral ureters probably due to th e prominent bladder distention. 2. Possible mild fold thickening of small bowel loops along the left side of the abdomen. Findings c ould be due to nondistention versus nonspecific mild enteritis. 3. Fibroid uterus with dominant fibroid measuring 4.3 cm. [facility], , 11/01/2024 9:51 AM
[2024-11-01 10:08] VITALS: BP 115/73; PULSE 73; RESP 16; TEMP 98.1
== END 2024-11-01 10:28 | disposition home or self-care (01) ==
LOC: EC 07:13
DX: N30.90 Cystitis, unspecified without hematuria (principal); Z91.018 Allergy to other foods; Z91.011 Allergy to milk products; Z88.8 Allergy status to other drugs, medicaments and biological substances
CPT/HCPCS: 36415; 74176; 80053; 81001; 85025; 96360; 99284

== ENCOUNTER → 2025-04-23 | Outpatient (CLI) | payer BC ==
[2025-04-23 12:06] VITALS: BP 106/68; PULSE 64; RESP 16; TEMP 97.6
--- NOTE | 2025-04-23 13:31 | P.PROGSL ---
Subjective DATE: 04/23/2025 FOLLOW UP VISIT. Patient with obstructive sleep apnea hypopnea syndrome return to sleep center for follow-up visit. Information from previous visit have been reviewed. Patient is using PAP equipment every night for the whole night, getting PAP supplies in time. The patient does not have significant problems with the mask, PAP unit and humidification. [place] sleepiness scale is 6, which is in normal range. I checked information from PAP unit. PAP unit pressure 5-11, average 9 cm H2O. Usage is 100% for more then 4 hours, average 6.5 hours per night. Leak is 4l/m, which is in acceptable range. Apnea Hypopnea Index is 1.9, which is normal. MEDICATIONS have been reviewed, please see below. During physical exam: GENERAL: A pleasant patient without any distress. VITAL SIGNS: Please see below, weight is 148 lbs. HEENT: PERRLA, EOMI.low position of soft palate, Mallapati 3 . NECK: Supple. No JVD. LUNGS: Clear to percussion and to auscultation. Good air exchange. No wheezing or rhonchi. HEART: S1, S2 regular. ABDOMEN: Soft and nontender.[] EXTREMITIES: No clubbing or cyanosis. FIBERGLASS CONTAINER WINDING OPERATOR: Awake, alert, and oriented x3. No focal deficit. Impressions: 1. Obstructive sleep apnea-hypopnea syndrome. Patient demonstrated great compliance with treatment, benefiting from treatment. 2. Allergy. 3. Hyperlipidemia. 4. Acid reflux. 5. Status post COVID-19. Plan: 1. Continue using PAP equipment every night for the whole night. 2. Sleep hygiene with regular time in bed for at least 7.5-8 hours 3. PAP unit should stay lower then position of the head. 4. Advised patient to remove all remaining water from humidifier canister daily and make it dry after each usage. Refill canister with fresh distilled water before each usage. 5. Watching weight. 6. Precautions related to driving. No driving if feel any sleepiness. 7. I will maintain prescription for PAP supplies including mask, tube, filters. 8. Follow up visit in 8 months or earlier if patient has any problems. Thank you very much for allowing me to participate in the management of your patient. Nelson Huerta MD, PhD, FAASM. Diplomat of [place] [employer], Sleep Medicine Board by [employer] Race Steward [facility] [place] Objective - Vital Signs Vital Signs: Vital Signs Temp 97.6 F 04/23/25 12:05 Pulse 64 04/23/25 12:05 Resp 16 04/23/25 12:05 BP 106/68 04/23/25 12:05 Pulse Ox 95 04/23/25 12:05 FiO2 Intake & Output 04/22/25 04/23/25 04/23/25 18:59 06:59 18:59 Weight 67.132 kg Home Medications: Home Medications Medication Instructions Recorded Confirmed Type Cholecalciferol [Vitamin D3 (125 125 mcg PO WEEKLY 05/25/23 04/23/25 History Mcg = 5000 Iu)] Cyanocobalamin [Vitamin B-12] 500 mcg PO DAILY 05/25/23 04/23/25 History HYDROcodone/APAP 7.5-325MG [[place] 1 each PO Q6HR PRN #28 tab 05/30/23 Rx 7.5] methylPREDNISolone Dose Pack 4 mg PO DIRECTED #21 tab 05/30/23 03/06/24 Rx [Medrol Dose Pack] Rosuvastatin Calcium 5 mg PO QID 03/06/24 04/23/25 History Nitrofurantoin Monohyd/M-Cryst 100 mg PO Q12HR #14 cap 11/01/24 Rx [Macrobid]
== END ==
LOC: 3 N SLEEP 11:17
PROVIDERS: ATTEND Internal Medicine
DX: G47.33 Obstructive sleep apnea (adult) (pediatric) (principal); T78.40XA Allergy, unspecified, initial encounter; E78.5 Hyperlipidemia, unspecified; K21.9 Gastro-esophageal reflux disease without esophagitis; U09.9 Post COVID-19 condition, unspecified; Z91.030 Bee allergy status; Z91.012 Allergy to eggs; Z91.011 Allergy to milk products; Z91.018 Allergy to other foods; Z88.1 Allergy status to other antibiotic agents
CPT/HCPCS: 99212